=== PATIENT | female | born 1950 | race Caucasian/White ===

== ENCOUNTER 2016-07-26 09:15 | Emergency (ER) | payer BC, MEDICARE ==
--- NOTE | ~2016-07-26 | ER ---
PATIENT'S NAME: WILMA SOLIS [facility] AGE: 66 Y [address] ROOM: [place] [address] LOCATION: [facility] ADMIT DATE: 07/26/2016 ER/Outpatient Report DISCHARGE DATE: 07/26/2016 FAMILY PHYSICIAN: Naga Castillo MD ATTENDING PHYSICIAN: Chalino Rosado CHIEF COMPLAINT: Right knee pain. HISTORY OF PRESENT ILLNESS: The patient was at work at [employer] when her knee started hurting yesterday. She had a knee replacement on that side seven years ago. The knee was swollen, and she states it is warm. She called Dr. Rasmussen, her Orthopedic surgeon, who recommended evaluation in the Emergency Department, and would like to evaluate her. She denies any other complaints such as fevers or anything of that nature. It is slightly painful to walk on, but not painful to move or bend. PAST MEDICAL HISTORY: As documented on the record and have been reviewed by me. SOCIAL HISTORY: As documented on the record and have been reviewed by me. MEDICATIONS: As documented on the record and have been reviewed by me. ALLERGIES: DOCUMENTED ON THE RECORD AND HAVE BEEN REVIEWED BY ME. REVIEW OF SYSTEMS: All systems were reviewed and are negative except as noted in the HPI. PHYSICAL EXAMINATION: VITAL SIGNS: Blood pressure was 184/81, pulse was 75, respiratory rate was 16, temperature was 97.4, and SpO2 was 93% on room air. Pain is rated at 5/10 and max is 8/10. GENERAL: Age-appropriate female. No obvious distress, in mild pain resting on the exam table. NEUROLOGIC: Awake and alert. GCS is 15. No obvious abnormalities. HEENT: Normocephalic and atraumatic. Eyes are PERRL. Oropharynx is clear. CHEST: Even and unlabored respirations. No obvious abnormalities. ABDOMEN: Benign to inspection. EXTREMITIES: Notable for some slight edema of the right knee. No obvious joint effusion. No obvious joint laxity as expected post replacement. There PATIENT'S NAME: WILMA SOLIS [facility] AGE: 66 Y [address] ROOM: [place] [address] LOCATION: ED ADMIT DATE: 07/26/2016 ER/Outpatient Report DISCHARGE DATE: 07/26/2016 FAMILY PHYSICIAN: Naga Castillo MD ATTENDING PHYSICIAN: Chalino Rosado was no erythema and no particular warmth. There was no tenderness throughout the calf muscle. SKIN: Otherwise warm and dry and intact. LABORATORY DATA AND X-RAYS: ESR and CRP were within the normal range. Plain films did not reveal any abnormalities. IMPRESSION: Right knee pain. EMERGENCY DEPARTMENT COURSE: The patient was seen and evaluated. Dr. Rasmussen, Orthopedic surgeon, did direct labs and imaging, and evaluated the patient as well. There are followup instructions per Dr. Rasmussen. The patient was discharged in good condition. MD AMELIE LANG/modl /[id number] d: 07/26/162008 t: 08/05/16 1733, OUTPATIENT REPORT
--- NOTE | ~2016-07-26 | CON ---
PATIENT'S NAME: WILMA SOLIS [facility] AGE: 66 Y [address] ROOM: [place], [place] [address] LOCATION: [facility] ADMIT DATE: 07/26/2016 Consultation DISCHARGE DATE: 07/26/2016 FAMILY PHYSICIAN: Naga Castillo MD ATTENDING PHYSICIAN: Chalino Rosado REFERRING PHYSICIAN: Gray Rasmussen MD Emergency Room Consultation Note HISTORY OF PRESENT ILLNESS: Ms. Solis is a 66-year-old female who is well known to me based upon the fact that I replaced her right knee several years ago. She called me through my answering service this morning to inform me that she had experienced acute onset of right knee pain and swelling yesterday. She has been very pleased with a status of her right knee over the past several years. She considers her right knee replacement to have been very successful. She awoke yesterday morning with no knee discomfort. However, she stood up after having been sitting at work yesterday afternoon, and the knee was very painful. She states that she had done nothing out of the ordinary. She denies history of recent infection of any sort. She noted associated swelling. She has been able to continue to bear weight, but she notes that she is limping. She underwent a normal dental cleaning last week, but she assures me that she remembered to take her prophylactic antibiotics. She has been experiencing moderate pain in her right hand over the past few weeks, but she is not experiencing pain in any other joints. She has been taking Aleve intermittently for her right hand. She is not requiring an assistive device for ambulation. Given that this is a Thursday morning, I did not feel that this should wait until Thursday. I therefore encouraged her to present to the emergency room for evaluation. She is accompanied by her . PHYSICAL EXAMINATION: Moderately antalgic gait. She is requiring no assistive device for ambulation. Neutral tibial femoral alignment on the right. Well-healed midline scar on the right knee. There is no erythema or abnormal warmth. There is no flexion contracture. There is no extensor lag. Flexion 120 degrees. There is a moderate effusion, but there is no abnormal warmth. There is no crepitation. There is no calf swelling or tenderness in the right lower extremity. There is no peripheral edema. She is alert and oriented and in no distress. There is mild swelling at the right hand, but no swelling at the left hand. RADIOGRAPHS: AP, lateral, and Merchant views of the right knee demonstrate a well-fixed, PATIENT'S NAME: WILMA SOLIS [facility] AGE: 66 Y [address] ROOM: [place], [place] [address] LOCATION: [facility] ADMIT DATE: 07/26/2016 Consultation DISCHARGE DATE: 07/26/2016 FAMILY PHYSICIAN: Naga Castillo MD ATTENDING PHYSICIAN: Chalino Rosado well-aligned right total knee arthroplasty with no radiolucencies. No complicating features of any sort. Her erythrocyte sedimentation rate and C-reactive protein levels were both within normal limits. IMPRESSION: Right knee synovitis (possible hemarthrosis). Negative workup for infection. No evidence of mechanical compromise. PLAN: I have reassured the patient that there is no evidence of infection or mechanical compromise. I have urged her to keep her activity to a minimum through the weekend. Of note, she has a knee immobilizer at home, and I have encouraged her to use this. I have encouraged her to ice and elevate as much as possible. I have asked her to take Aleve (2 tablets twice daily with food) until following up with me next Thursday. I have asked her to contact me in the interim if she experiences any questions, concerns, setbacks, or any trend of increased discomfort. MD RASHAUN HERNANDEZ/renan /[id number] d: 07/26/161800 t: 08/14/162033, CONSULTATION REPORT
== END 2016-07-26 11:05 | disposition disaster alternative care site (69) ==
LOC: GMED 09:15
DX: M65.861 Other synovitis and tenosynovitis, right lower leg (principal); I10 Essential (primary) hypertension; E11.9 Type 2 diabetes mellitus without complications; Z96.651 Presence of right artificial knee joint; Z79.84 Long term (current) use of oral hypoglycemic drugs; Z79.899 Other long term (current) drug therapy